=== PATIENT | male | born 1970 ===

== ENCOUNTER 2020-10-26 14:45 | Outpatient (REF) | payer MEDICAID, SELFPAY ==
--- NOTE | ~2020-10-26 | XR_ITS ---
EXAMINATION: XR SHOULDER, LEFT CLINICAL INFORMATION: Shoulder pain. COMPARISON: 07/29/2019 TECHNIQUE: AP external rotation, Grashey, scapular Y, and axillary views of the left shoulder. FINDINGS: Ukoyfbmr-it-unrztl glenohumeral joint arthritis, joint space loss, prominent inferomedial humeral head osteophyte. No fracture or dislocation. Mild acromioclavicular arthritis. No abnormal soft tissue calcification. XR/XR shoulder LT min 2V IMPRESSION: Hsklbods-ch-zrrqlr glenohumeral joint arthritis. Some interval progression from previous. Mild acromioclavicular arthritis.
== END 2020-10-26 14:46 | disposition home or self-care (01) ==
LOC: HO.XRAY 14:45
PROVIDERS: PCP Internal Medicine Geriatric Medicine; Visit Provider Internal Medicine Geriatric Medicine
DX: M25.512 Pain in left shoulder (principal)
CPT/HCPCS: 73030

== ENCOUNTER 2021-10-13 15:32 | Outpatient (REF) | payer MEDICAID, SELFPAY ==
--- NOTE | ~2021-10-13 | MR_ITS ---
EXAMINATION: MR LUMBAR SPINE WITHOUT AND WITH CONTRAST CLINICAL INFORMATION: 51-year-old with low back pain radiating to the right leg. COMPARISON: None TECHNIQUE: MRI of the lumbar spine was obtained using routine sequences with and without contrast. Intravenous Contrast: Gadavist 8 mL. FINDINGS: Coronal Alignment: Normal. Sagittal Alignment: There is 2 mm of grade 1 degenerative spondylolisthesis at L4-L5 without spondylolysis. Lordotic curvature is maintained. Lumbosacral Junction: Normal. Vertebral Bodies: Normal height. Disc Spaces and Endplates: Mild disc space height loss and disc desiccation at L5-S1 and L4-L5 with minor spondylosis. Moderate disc space height loss, disc desiccation and spondylosis at T12-L1. Minor spondylosis at T11-T12. Spinal Canal: No abnormal developmental findings. Bone Marrow: No significant marrow-replacing process or bone marrow edema. Type II degenerative marrow signal changes seen along the anterosuperior and anteroinferior corners of T12 and anterosuperior corner of L5. Conus Medullaris: Terminates at T12. Morphology and signal is normal. No abnormal enhancement. Intradural Nerve Roots: Within normal limits. No abnormal intradural enhancement. SPINAL LEVELS: L5-S1: Evidence of a previous right-sided hemilaminectomy noted with minimal ventral epidural scar tissue on the right anterior to the right S1 nerve root sleeve. No recurrent disc herniation. There is broad-based nqiglzs-cw-uerp paramedian disc herniation without thecal sac or neural impingement, with mild narrowing of the left subarticular zone. Underlying disc bulging encroaches on the inferior neural foramina bilaterally. There is mild bilateral neural foraminal stenosis. L4-L5: Small central extruded disc herniation with mild cephalad migration noted with slight unroofing of the posterior disc margin consistent with mild spondylolisthesis with underlying diffuse disc bulging and right foraminal/extraforaminal disc herniation with an enhancing annular fissure. There is ligamentum flavum thickening and there is sjmzlcyh-ok-ieccnt bilateral facet arthropathy with mild reactive marrow edema in the L5 pedicles bilaterally with bilateral periarticular enhancement consistent with active facet inflammatory changes. There is moderate central spinal canal stenosis and there is crowding of the subarticular zones bilaterally, encroaching on the traversing L5 nerve roots, right more than left. There is moderate right-sided and trvy-fd-bhqlesku left-sided neural foraminal stenosis, with right lateral disc herniation impinging on the exiting right L4 nerve root. L3-L4: Mild disc bulging noted with mild ligamentum flavum thickening, with yuwm-yw-aisvrsky bilateral facet arthropathy without significant central spinal canal stenosis. There is minor foraminal narrowing bilaterally without neural impingement. L2-L3: Small bilateral foraminal disc protrusions are noted without significant canal or neural foraminal stenosis. L1-L2: No disc bulge or herniation. No significant facet arthrosis, canal or neural foraminal stenosis. T12-L1: Disc bulging noted with slight flattening of the ventral dural sac without significant facet arthrosis or canal stenosis. Mild foraminal narrowing noted bilaterally without neural impingement. Small central extruded disc herniation with mild cephalad migration at T11-T12 not imaged in the axial plane without conus impingement. Left paramedian extruded disc herniation also suspected at T10-T11. Paraspinal/Retroperitoneal: The paravertebral soft tissues are unremarkable. MR/MR lumbar spine wo/w con IMPRESSION: 1. Multilevel discogenic degenerative changes with mild grade 1 degenerative spondylolisthesis at L4-L5 as described above with postoperative changes on the right at L5-S1. 2. Residual or recurrent dtnpbxe-rr-vhsx paramedian disc protrusion at the L5-S1 with underlying disc bulging, resulting in mild narrowing of the left subarticular zone and mild bilateral neural foraminal stenosis. 3. Central extruded disc herniation with mild cephalad migration at L4-L5 with a superimposed disc bulging and right lateral foraminal disc herniation and bilateral facet arthropathy, with moderate central spinal canal stenosis and bilateral subarticular recess narrowing, right more than left. Right-sided and left-sided neural foraminal stenosis, with right L4 nerve root impingement as described above. Possible encroachment on the traversing right L5 nerve root in the right subarticular zone. 4. Mild disc bulging at L3-L4 with facet arthrosis and mild foraminal narrowing bilaterally without neural impingement; small bilateral foraminal disc protrusions at L2-L3 and disc bulging at T12-L1 with a small central extruded disc herniation with cephalad migration at T11-T12 and left paramedian extruded disc herniation at T10-T11.
== END 2021-10-13 15:33 | disposition home or self-care (01) ==
LOC: HO.MRI 15:32
PROVIDERS: Visit Provider Internal Medicine Geriatric Medicine
DX: M54.50 Low back pain, unspecified (principal); M54.16 Radiculopathy, lumbar region; Z98.890 Other specified postprocedural states
CPT/HCPCS: 72158; A9585

== ENCOUNTER 2021-12-02 12:49 | Outpatient (REF) | payer MEDICAID, SELFPAY ==
--- NOTE | ~2021-12-02 | US_ITS ---
EXAMINATION: US VENOUS ULTRASOUND WITH DOPPLER LOWER EXTREMITY, BILATERAL CLINICAL INFORMATION: There is new onset swelling. Bilateral edema. COMPARISON: None TECHNIQUE: Ultrasound of the deep veins is performed from the hip to the calf with compression sonography and color and pulse Doppler assessment. Spectral analysis with color-flow imaging is performed. FINDINGS: RIGHT: There is normal venous compression and respiratory variation and augmented flow. The visualized common femoral vein, superficial femoral vein, profunda femoral vein, popliteal vein, and the trifurcation region shows no evidence of deep venous thrombosis. There is no significant popliteal fossa cyst. LEFT: There is normal venous compression and respiratory variation and augmented flow. The visualized common femoral vein, superficial femoral vein, profunda femoral vein, popliteal vein, and the trifurcation region shows no evidence of deep venous thrombosis. There is no significant popliteal fossa cyst. If the patient's symptoms persist, followup ultrasound in 5 days 7 days might be of value to exclude proximal propagation from a non-visualized calf vein. US/US venous duplex LE BI IMPRESSION: No DVT demonstrated in the bilateral lower extremities.
== END 2021-12-02 12:50 | disposition home or self-care (01) ==
LOC: HO.US 12:49
PROVIDERS: PCP Internal Medicine Geriatric Medicine; Visit Provider Nurse Practitioner Primary Care
DX: R60.0 Localized edema (principal)
CPT/HCPCS: 93970

== ENCOUNTER → 2022-07-11 09:26 | Outpatient (BNVA) | payer MEDICAID, SELFPAY | PROVIDERS: PCP Internal Medicine Geriatric Medicine; Referring Provider Internal Medicine Geriatric Medicine; Visit Provider Surgery | DX: D17.9 Benign lipomatous neoplasm, unspecified (principal); I25.10 Atherosclerotic heart disease of native coronary artery without angina pectoris; I10 Essential (primary) hypertension; Z79.01 Long term (current) use of anticoagulants | CPT/HCPCS: 99202 ==

== ENCOUNTER → 2022-10-03 09:17 | Outpatient (BNVA) | payer MEDICAID, SELFPAY | PROVIDERS: PCP Internal Medicine Geriatric Medicine; Visit Provider Nurse Practitioner Family | DX: Z12.11 Encounter for screening for malignant neoplasm of colon (principal); I25.10 Atherosclerotic heart disease of native coronary artery without angina pectoris; I10 Essential (primary) hypertension; Z95.5 Presence of coronary angioplasty implant and graft; Z79.82 Long term (current) use of aspirin; Z79.899 Other long term (current) drug therapy | CPT/HCPCS: 99202 ==

== ENCOUNTER 2023-07-05 08:04 | Outpatient (REF) | payer MEDICAID, SELFPAY | END 2023-07-05 08:05 | disposition home or self-care (01) | LOC: HO.MRI 08:04 | PROVIDERS: PCP Internal Medicine Geriatric Medicine; Visit Provider Internal Medicine Geriatric Medicine | DX: M54.10 Radiculopathy, site unspecified (principal); M51.26 Other intervertebral disc displacement, lumbar region | CPT/HCPCS: 72148 ==

== ENCOUNTER 2023-08-24 10:06 | Outpatient (REF) | payer MEDICAID, SELFPAY ==
[2023-08-24 11:51] LABS: Anion Gap 12 (12-20); Blood Urea Nitrogen 14 mg/dL (9-16); Calcium 9.6 mg/dL (8.4-10.2); Carbon Dioxide 26 mmol/L (22-29); Chloride 108 mmol/L (96-108); Estimated Glomerular Filt Rate > 60; Glucose Random 103 mg/dL (60-115); Potassium 3.9 mmol/L (3.3-5.1); Sodium 142 mmol/L (135-145)
== END 2023-08-24 10:07 | disposition home or self-care (01) ==
LOC: HO.HHCL 10:06
PROVIDERS: Visit Provider Internal Medicine Geriatric Medicine
DX: I10 Essential (primary) hypertension (principal)
CPT/HCPCS: 36415; 80048

== ENCOUNTER 2024-01-05 14:41 | Outpatient (REF) | payer MEDICAID, SELFPAY ==
[2024-01-05 15:54] LABS: MANUAL DIFF FLAG NO
[2024-01-05 16:05] LABS: Appearance Urine Clear; Color Urine Yellow; Glucose Urine UA Negative (Negative); Leukocyte Esterase Urine Negative (Negative); Nitrite Urine Negative (Negative); Specific Gravity - Urine >= 1.030 (1.005-1.025); UMIC TRIGGER UACC YES; Urine Blood Negative (Negative); Urine Ketones Trace mg/dL (Negative); Urine Protein 30 (1+) mg/dL (Neg-Trace)
[2024-01-05 16:10] LABS: Basophils Percent Auto 0.7 % (0-2); Eosinophils Absolute Auto 0.1 X10*3/uL (0.0-0.4); Eosinophils Percent Auto 1.5 % (0-4); Hematocrit 42.9 % (42.0-52.0); Hemoglobin 14.7 g/dl (14.0-18.0); Imm Gran Abs Auto 0.02 X10*3/uL (0.00-0.03); Imm Gran Pct Auto 0.3 % (0.0-0.4); Lymphocytes Absolute Auto 1.5 X10*3/uL (1.2-4.9); Lymphocytes Percent Auto 24.7 % (20-40); Mean Corpuscular HGB Conc 34.3 g/dl (31.0-36.0); Mean Corpuscular Hemoglobin 30.1 pg (27.0-33.0); Mean Corpuscular Volume 87.7 fL (80.0-98.0); Mean Platelet Volume 10.3 fL (9.4-12.4); Monocytes Absolute Auto 0.4 X10*3/uL (0.1-1.2); Monocytes Percent Auto 5.9 % (2-11); Neutrophils Percent Auto 66.9 % (45-73); Platelet Count 255 X10*3/uL (160-400); Red Blood Count 4.89 X10*6/uL (4.60-5.80); Red Cell Distribution Width 12.8 % (11.0-16.0)
[2024-01-05 16:12] LABS: Bacteria Urine None Seen (None Seen); Hyaline Casts Urine 0-2 /LPF (0-2); RBC Urine 0-2 /HPF (0-2); Squamous Epithelial Cell Urine 0-2 /HPF (0-2); WBC Urine 0-5 /HPF (0-5)
[2024-01-05 16:13] LABS: Rheumatoid Factor < 13.0 IU/mL (<15.0)
[2024-01-05 16:24] LABS: Alanine Aminotransferase 31 U/L (0-40); Albumin Level 4.3 g/dL (3.5-5.0); Alkaline Phosphatase 103 U/L (39-117); Anion Gap 12 (12-20); Aspartate Amino Transferase 31 U/L (5-37); Bilirubin Total 0.3 mg/dL (0.0-1.0); Blood Urea Nitrogen 15 mg/dL (9-16); C Reactive Protein 0.21 mg/dL (< or = 0.50); Calcium 9.8 mg/dL (8.4-10.2); Carbon Dioxide 26 mmol/L (22-29); Chloride 108 mmol/L (96-108); Estimated Glomerular Filt Rate > 60; Glucose Random 104 mg/dL (60-115); Potassium 3.8 mmol/L (3.3-5.1); Sodium 142 mmol/L (135-145); Total Protein 7.5 g/dL (6.5-8.0)
[2024-01-05 16:30] LABS: TSH reflex Free T4 1.06 uIU/mL (0.32-4.0)
[2024-01-05 17:01] LABS: Erythrocyte Sedimentation Rate 11 MM/HR (0-15)
[2024-01-05 18:42] LABS: Creatinine Urine 300.29 mg/dL; Microalbum/Creatinine Ratio Ur 11.3 ug/mg cr (<30)
[2024-01-09 14:18] LABS: Cyclic Citrullinated Peptide <16 UNITS
== END 2024-01-05 14:42 | disposition home or self-care (01) ==
LOC: HO.HHCL 14:41
PROVIDERS: Visit Provider Internal Medicine
DX: M79.89 Other specified soft tissue disorders (principal); R80.8 Other proteinuria; M79.641 Pain in right hand; M79.642 Pain in left hand
CPT/HCPCS: 36415; 80053; 81001; 82043; 82570; 84443; 85025; 85652; 86140; 86200; 86431

== ENCOUNTER 2024-05-01 08:47 | Outpatient (AMB) | payer MEDICAID, SELFPAY ==
--- NOTE | 2024-05-01 09:03 | MHC.OFFVIS ---
Intake Visit Reasons: left shoulder pain and weakness Intake Note: Gildardo is a 53 year old right hand dominant male who presents with complaints of progressively worsening left shoulder pain and weakness. The patient states that his symptoms have gotten worse over the last few years. He did injure his left shoulder several years ago while lifting weights. Since that time he has had difficulty lifting his left hand above shoulder height. Has failed the last 6 weeks of conservative treatment which have consisted of physical therapy exercises, Tylenol, anti-inflammatory medicines and topical creams. The patient denies any numbness or tingling in either of his upper extremities. He reports weakness when trying to lift his left hand above shoulder height. Allergies No Known Allergies Allergy (Verified 05/01/24 09:06) Medication List - Last Reconciled 05/01/24 by Thiago Scott MD amlodipine 10 mg PO DAILY aspirin 81 mg PO DAILY bisacodyl (Dulcolax (bisacodyl)) 10 mg (2 x 5 mg) PO ONCE 1 day losartan 25 mg PO DAILY metoprolol succinate ER 50 mg PO DAILY polyethylene glycol 3350 (Miralax) 238 grams PO ONCE rosuvastatin 10 mg PO DAILY ticagrelor (Brilinta) 60 mg PO BID [facility] Medical History (Updated 05/01/24 @ 09:23 by Thiago Scott MD) CAD (coronary artery disease) Myocardial infarction HTN (hypertension) Surgical History (System 06/01/23 @ 09:24 by Eloina Contreras) H/O heart artery stent H/O colonoscopy Previous back surgery H/O removal of cyst Family History Mother Heart disease Social History Household Members: Spouse Housing: Apartment Alcohol intake: never Patient Tobacco Use Status: Never used Tobacco service: No Current occupational status: employed Current occupation: [employer] Physical Exam Const Other: Well-nourished well-developed very friendly male awake alert and oriented x3 in no acute distress Extrem Other: Bilateral upper extremity examination shows good capillary refill, no skin lesions noted, normal sensation light touch left shoulder examination shows decreased range of motion when compared to his right shoulder, 4+ out of 5 strength with supraspinatus testing, positive impingement signs, tenderness over his acromioclavicular joint, no instability Results Reviewed Results Reviewed: x-rays of the patient's left shoulder show severe acromioclavicular joint narrowing, a type 2 acromion, mild to moderate glenohumeral joint degenerative changes, no acute bony abnormalities Assessment & Plan Assessment & Plan (1) Rotator cuff insufficiency of left shoulder: Code(s): M25.312 - Other instability, left shoulder Category: Medical Plan Mr. Miranda Presents with progressively worsening left shoulder pain and weakness due to glenohumeral joint degenerative joint disease as well as possible full-thickness rotator cuff tearing. Thus, I will send the patient for an MRI of his left shoulder for further evaluation. I will see him back once the MRI is completed to discuss the findings and treatment options. He will continue with his range of motion exercises in the meantime. Feel free to call me at any time should questions regarding his orthopedic management arise. Thank you very much for asking me to see this very friendly gentleman. I spent 21 minutes in reviewing the patient's records and imaging studies, seeing the patient and documenting in the medical record. Orders: Orders MR shoulder LT wo con Today M25.312 - Other instability, left shoulder XR shoulder LT min 2V Today M25.512 - Pain in left shoulder Coding Level of Care Code New Pt Level 3 (36949) Complex EM visit Add On G2211 Diagnoses Rotator cuff insufficiency of left shoulder M25.312
== END 2024-05-01 09:21 | disposition home or self-care (01) ==
LOC: HO.HOS 08:48
PROVIDERS: PCP Internal Medicine Geriatric Medicine; Visit Provider Orthopaedic Surgery
DX: M25.312 Other instability, left shoulder (principal); M19.012 Primary osteoarthritis, left shoulder
CPT/HCPCS: 99203

== ENCOUNTER 2024-05-01 11:49 | Outpatient (REF) | payer MEDICAID, SELFPAY | END 2024-05-01 11:50 | disposition home or self-care (01) | LOC: HO.HOSX 11:49 | PROVIDERS: Visit Provider Orthopaedic Surgery | DX: M25.312 Other instability, left shoulder (principal); M25.512 Pain in left shoulder | CPT/HCPCS: 73030; 99202 ==